=== PATIENT | female | born 2000 | race Caucasian/White ===

== ENCOUNTER 2022-03-06 10:12 | Inpatient (IN) ==
[2022-03-06 11:48] LABS: ABS Lymphocytes 1.6 10^3/ul (1.0-4.8); ABS Monocytes 0.5 10^3/ul (0-0.8); ABS Neutrophils 4.7 10^3/ul (1.5-7.7); Eosinophil % 0.4 %; Hematocrit 40 % (35-47); Lymphocyte % 23.2 %; Mean Corpuscular HGB Conc 35 g/dL (31-36); Mean Corpuscular Hemoglobin 32 pg (27-31); Mean Corpuscular Volume 90 fL (80-97); Mean Platelet Volume 8.6 fL (7.4-10.4); Platelet Count 224 10^3/uL (150-450); Red Blood Count 4.44 10^6 /uL (3.70-4.87); Red Cell Distribution Width 13 % (10-15); White Blood Count 6.9 10^3/uL (3.5-10.8)
[2022-03-06 11:54] LABS: Urine Appearance Clear; Urine Bilirubin Negative (Negative); Urine Blood 3+ (Large) (Negative); Urine Color Colorless; Urine Glucose Negative (Negative); Urine Ketones Negative (Negative); Urine Protein Negative (Negative); Urine Specific Gravity <=1.005 (1.005-1.030); Urine Urobilinogen 0.2 (Negative) (Negative); Urine pH 6.5 (5.0-9.0)
[2022-03-06 11:55] LABS: Urine Nitrite Negative (Negative)
[2022-03-06 12:05] LABS: Urine Benzodiazepine Screen None Detected (None Detect); Urine Cannabinoids Screen None Detected (None Detect); Urine Opiates Screen None Detected (None Detect)
[2022-03-06 12:06] LABS: ALT 10 U/L (7-52); AST 15 U/L (13-39); Acetaminophen < 15 mcg/mL; Albumin 4.6 g/dL (3.2-5.2); Albumin/Globulin Ratio 1.8 (1-3); Alcohol, S < 13 mg/dL (<13); Alkaline Phosphatase 67 U/L (35-149); Anion Gap 6 mmol/L (2-11); Blood Urea Nitrogen 11 mg/dL (6-24); CO2 Carbon Dioxide 27 mmol/L (22-32); Calcium 10.1 mg/dL (8.6-10.3); Chloride 105 mmol/L (101-111); Globulin 2.5 g/dL (2-4); Glucose 90 mg/dL (70-100); Potassium 4.2 mmol/L (3.5-5.0); Salicylate < 2.50 mg/dL (<30); Sodium 138 mmol/L (135-145); Total Protein 7.1 g/dL (6.4-8.9); eGFR CKD-EPI 99.3 (>60)
[2022-03-06 12:11] LABS: HCG Pregnancy < 0.60 mIU/mL
[2022-03-06 12:19] LABS: TSH Ultra Thyroid Stim Horm 0.98 mcIU/mL (0.34-5.60)
[2022-03-06 12:29] LABS: Urine Bacteria Absent (Absent); Urine Red Blood Cell Trace(0-2/hpf) (Absent); Urine Squamous Epithelial Cell Present (Absent); Urine White Blood Cell Trace(0-5/hpf) (Absent)
[2022-03-06] MEDS ORDERED: Al Hydrox/Mg Hydrox/Simet LIQ 30 ML UDC PO PRN (14:50)
[2022-03-06 15:14] LABS: Lithium < 0.10 mmol/L (0.6-1.2)
[2022-03-07 08:03] LABS: HDL Cholesterol 53.7 mg/dL
[2022-03-07] MEDS: Vitamin THERAPEUTIC TAB PO SCH (09:29)
[2022-03-08] MEDS: Vitamin THERAPEUTIC TAB PO SCH (08:56)
[2022-03-09] MEDS: Vitamin THERAPEUTIC TAB PO SCH (10:51)
[2022-03-10] MEDS: Vitamin THERAPEUTIC TAB PO SCH (07:09)
[2022-03-10 08:09] VITALS: BP 112/72
== END 2022-03-10 13:07 | disposition home or self-care (01) | DRG 755 ==
LOC: ED 10:12 → EDHOLD 14:50 → BSU 17:26
PROVIDERS: ADMIT Psychiatry & Neurology Psychiatry; ATTEND Psychiatry & Neurology Psychiatry

== ENCOUNTER 2022-03-16 12:04 | Inpatient (IN) ==
[2022-03-16 13:31] LABS: Urine Appearance Clear; Urine Bilirubin Negative (Negative); Urine Blood Negative (Negative); Urine Color Straw; Urine Glucose Negative (Negative); Urine Ketones Negative (Negative); Urine Nitrite Negative (Negative); Urine Protein Negative (Negative); Urine Specific Gravity <=1.005 (1.005-1.030); Urine Urobilinogen 0.2 (Negative) (Negative); Urine pH 5.5 (5.0-9.0)
[2022-03-16 13:40] LABS: Urine Benzodiazepine Screen None Detected (None Detect); Urine Cannabinoids Screen None Detected (None Detect); Urine Opiates Screen None Detected (None Detect)
[2022-03-16] MEDS ORDERED: LORazepam 2 mg VIAL 1 ml ONE (15:26)
[2022-03-16] MEDS ORDERED: Haloperidol 5 mg/ml SDV IV/IM 5 MG/ML AMP ONE (15:30)
[2022-03-16 17:47] LABS: HIV 4th Generation Nonreactive (Nonreactive)
[2022-03-17 08:33] LABS: HDL Cholesterol 60.8 mg/dL
[2022-03-18] MEDS ORDERED: Vitamin THERAPEUTIC TAB ONE (09:24)
[2022-03-22] MEDS ORDERED: OLANZapine IM (NF) 10 MG VIAL IM PRN (06:55)
[2022-03-22] MEDS ORDERED: OLANZapine 10 mg TAB*ODT PO ONE (06:55)
[2022-03-22] MEDS ORDERED: OLANZapine 10 mg TAB*ODT ONE (06:58)
[2022-03-22] MEDS ORDERED: OLANZapine IM (NF) 10 MG VIAL IM ONE (07:06)
[2022-03-23] MEDS ORDERED: OLANZapine 10 mg TAB*ODT ONE (13:09)
[2022-03-26 08:26] VITALS: BP 113/66
== END 2022-03-26 14:00 | disposition home or self-care (01) | DRG 753 ==
LOC: ED 12:04 → EDHOLD 14:42 → BSU 18:05
PROVIDERS: ADMIT Psychiatry & Neurology Addiction Psychiatry; ATTEND Psychiatry & Neurology Addiction Psychiatry

== ENCOUNTER 2023-05-23 22:02 | Inpatient (IN) ==
[2023-05-23] MEDS ORDERED: Midazolam 5 mg/5 ml VIAL 1 mg/ml 5 ml VIAL (5 mg) IV SLOW PU ONE (22:35)
[2023-05-23 23:09] LABS: Urine Appearance Clear; Urine Bilirubin Negative (Negative); Urine Blood Negative (Negative); Urine Color Yellow; Urine Glucose Negative (Negative); Urine Ketones Negative (Negative); Urine Nitrite Negative (Negative); Urine Protein Negative (Negative); Urine Specific Gravity 1.005 (1.002-1.030); Urine Urobilinogen Negative (Negative)
[2023-05-23 23:14] LABS: ABS Eosinophils 0.1 10^3/uL (0.0-0.5); ABS Lymphocytes 2.1 10^3/uL (1.0-4.8); ABS Monocytes 0.9 10^3/uL (0.0-0.9); ABS Neutrophils 8.3 10^3/uL (1.5-7.6); ABS Nucleated RBC 0.01 10^3/ul; Eosinophil % 0.5 %; Hematocrit 39.8 % (35-45); Hemoglobin 13.7 g/dL (11.5-14.3); Lymphocyte % 18.6 %; Mean Corpuscular Hemoglobin 31.5 pg (27-33); Mean Corpuscular Hgb Conc 34.3 g/dL (31-36); Mean Corpuscular Volume 91.8 fL (80-97); Mean Platelet Volume 8.2 fL (7.5-11.2); Nucleated Red Blood Cells % 0.1 %/100WBC (0.0-0.8); Platelet Count 271 10^3/uL (150-450); Red Blood Count 4.34 10^6/uL (3.63-4.92); Red Cell Distribution Width 13.2 % (12-17); White Blood Count 11.4 10^3/uL (3.8-11.8)
[2023-05-23] MEDS ORDERED: OLANZapine 10 mg TAB*ODT PO ONE (23:14)
[2023-05-23 23:25] LABS: Urine Benzodiazepine Screen None Detected (None Detect); Urine Cannabinoids Screen Presumptive Positive (None Detect); Urine Opiates Screen None Detected (None Detect)
[2023-05-23 23:41] LABS: ALT 16 U/L (7-52); AST 21 U/L (13-39); Acetaminophen < 15 mcg/mL; Albumin 4.6 g/dL (3.2-5.2); Albumin/Globulin Ratio 1.6 (1-3); Alcohol, S < 13 mg/dL (<13); Alkaline Phosphatase 86 U/L (35-149); Anion Gap 11 mmol/L (2-16); Blood Urea Nitrogen 9 mg/dL (6-24); CO2 Carbon Dioxide 23 mmol/L (22-32); Calcium 9.6 mg/dL (8.6-10.3); Chloride 105 mmol/L (101-111); Creatinine, Serum 0.85 mg/dL (0.51-0.95); Globulin 2.9 g/dL (2-4); Glucose 94 mg/dL (70-100); Lithium < 0.16 mmol/L (0.6-1.2); Potassium 3.8 mmol/L (3.5-5.0); Salicylate < 2.50 mg/dL (<30); Sodium 139 mmol/L (135-145); Total Bilirubin 0.4 mg/dL (0.2-1.0); Total Protein 7.5 g/dL (6.4-8.9); eGFR CKD-EPI 98.7 (>60)
[2023-05-23 23:43] LABS: HCG Pregnancy < 0.60 mIU/mL
[2023-05-23 23:51] LABS: TSH Ultra Thyroid Stim Horm 2.33 mcIU/mL (0.34-5.60)
[2023-05-24] MEDS ORDERED: Ondansetron ODT 4 mg TAB 4 MG TAB SL ONE (01:18)
[2023-05-24] MEDS ORDERED: Droperidol 5 MG/2 ML 2 ML VIAL IM ONE (01:31)
[2023-05-24] MEDS ORDERED: Droperidol 5 MG/2 ML 2 ML VIAL ONE (01:33)
[2023-05-24] MEDS ORDERED: Al Hydrox/Mg Hydrox/Simet LIQ 30 ML UDC PO PRN (12:00)
[2023-05-24] MEDS ORDERED: chlorproMAZINE TAB 50 MG Q6H PRN AGITATION PO (12:01)
[2023-05-24] MEDS: Ondansetron ODT 4 mg TAB 4 MG TAB PO PRN (17:08)
[2023-05-24] MEDS: Lithium Carbonate ER 450mg TAB PO SCH (20:31)
[2023-05-25] MEDS: Vitamin THERAPEUTIC TAB PO SCH (08:45)
[2023-05-25] MEDS: Lithium Carbonate ER 450mg TAB PO SCH ×2 (08:45→23:32)
[2023-05-25] MEDS: Nicotine PATCH 14 MG/24 HR PATCH TRANSDERM SCH (08:45)
[2023-05-25] MEDS: Nicotine GUM 4MG FRUIT FLAVOR PO PRN (08:49)
[2023-05-25] MEDS: Ondansetron ODT 4 mg TAB 4 MG TAB PO PRN ×2 (09:11→16:37)
[2023-05-25] MEDS ORDERED: Haloperidol 5 mg/ml SDV IV/IM 5 MG/ML AMP ONE (10:03)
[2023-05-25] MEDS ORDERED: LORazepam 2 mg VIAL 1 ml ONE (10:05)
[2023-05-25] MEDS ORDERED: Lorazepam PYXIS KEY PRN (10:35)
[2023-05-25] MEDS ORDERED: LORazepam 2 mg VIAL 1 ml IM ONE (10:35)
[2023-05-25] MEDS ORDERED: Haloperidol 5 mg/ml SDV IV/IM 5 MG/ML AMP IM ONE (10:36)
[2023-05-25] MEDS ORDERED: OLANZapine 10 mg TAB*ODT PO SCH (21:00)
[2023-05-26] MEDS: Nicotine PATCH 14 MG/24 HR PATCH TRANSDERM SCH (07:55)
[2023-05-26] MEDS: Lithium Carbonate ER 450mg TAB PO SCH ×2 (07:55→20:20)
[2023-05-26] MEDS: Vitamin THERAPEUTIC TAB PO SCH (07:55)
[2023-05-26] MEDS: Nicotine GUM 4MG FRUIT FLAVOR PO PRN (07:56)
[2023-05-26] MEDS: Ondansetron ODT 4 mg TAB 4 MG TAB PO PRN ×2 (08:06→16:56)
[2023-05-27] MEDS: Nicotine PATCH 14 MG/24 HR PATCH TRANSDERM SCH (08:25)
[2023-05-27] MEDS: Vitamin THERAPEUTIC TAB PO SCH (08:26)
[2023-05-27] MEDS: Lithium Carbonate ER 450mg TAB PO SCH ×2 (08:26→20:09)
[2023-05-27 16:13] LABS: HIV 4th Generation Nonreactive (Nonreactive)
[2023-05-27 16:29] LABS: Hepatitis C Antibody Negative (Negative)
[2023-05-28] MEDS: Ondansetron ODT 4 mg TAB 4 MG TAB PO PRN (04:51)
[2023-05-28] MEDS: Lithium Carbonate ER 450mg TAB PO SCH ×2 (08:10→20:23)
[2023-05-28] MEDS: Vitamin THERAPEUTIC TAB PO SCH (08:10)
[2023-05-28 09:26] LABS: Lithium 0.56 mmol/L (0.6-1.2)
[2023-05-28 09:28] LABS: HDL Cholesterol 51.2 mg/dL
[2023-05-28] MEDS: Nicotine PATCH 14 MG/24 HR PATCH TRANSDERM SCH (10:24)
[2023-05-28 13:41] LABS: HCG Pregnancy 9.05 mIU/mL
[2023-05-29] MEDS: Vitamin THERAPEUTIC TAB PO SCH (08:13)
[2023-05-29] MEDS: Lithium Carbonate ER 450mg TAB PO SCH ×2 (08:13→20:20)
[2023-05-29] MEDS: Nicotine PATCH 14 MG/24 HR PATCH TRANSDERM SCH (08:13)
[2023-05-29] MEDS: Ondansetron ODT 4 mg TAB 4 MG TAB PO PRN ×2 (10:33→17:19)
[2023-05-30] MEDS ORDERED: Nicotine PATCH 7 MG/24 HR PATCH ONE (08:09)
[2023-05-30] MEDS: Lithium Carbonate ER 450mg TAB PO SCH ×2 (08:10→20:04)
[2023-05-30] MEDS: Vitamin THERAPEUTIC TAB PO SCH (08:10)
[2023-05-30] MEDS: Nicotine PATCH 7 MG/24 HR PATCH TRANSDERM SCH (10:49)
[2023-05-30] MEDS: Nicotine PATCH 14 MG/24 HR PATCH TRANSDERM SCH (10:51)
[2023-05-30] MEDS: Ondansetron ODT 4 mg TAB 4 MG TAB PO PRN ×2 (12:07→20:54)
[2023-05-31] MEDS: Nicotine PATCH 7 MG/24 HR PATCH TRANSDERM SCH (08:22)
[2023-05-31] MEDS: Lithium Carbonate ER 450mg TAB PO SCH ×2 (08:23→20:22)
[2023-05-31] MEDS: Vitamin THERAPEUTIC TAB PO SCH (08:23)
[2023-06-01] MEDS: Lithium Carbonate ER 450mg TAB PO SCH ×2 (09:02→20:14)
[2023-06-01] MEDS: Vitamin THERAPEUTIC TAB PO SCH (09:02)
[2023-06-01] MEDS: Nicotine PATCH 7 MG/24 HR PATCH TRANSDERM SCH (09:02)
[2023-06-01] MEDS ORDERED: ARIPiprazole LAUROXIL INITIO 675 MG/2.4 ML SYRINGE IM ONE (14:09)
[2023-06-01] MEDS ORDERED: ARIPiprazole LAUROXIL 441 MG/1.6 ML SYRINGE IM ONE (14:09)
[2023-06-02] MEDS: Lithium Carbonate ER 450mg TAB PO SCH (08:17)
[2023-06-02] MEDS: Vitamin THERAPEUTIC TAB PO SCH (08:17)
[2023-06-02] MEDS: Nicotine PATCH 7 MG/24 HR PATCH TRANSDERM SCH (08:18)
[2023-06-02] MEDS: Nicotine GUM 4MG FRUIT FLAVOR PO PRN (12:56)
[2023-06-03] MEDS: Ondansetron ODT 4 mg TAB 4 MG TAB PO PRN (00:48)
[2023-06-03] MEDS: Vitamin THERAPEUTIC TAB PO SCH (08:35)
[2023-06-03] MEDS: Nicotine PATCH 7 MG/24 HR PATCH TRANSDERM SCH (08:38)
[2023-06-04 07:45] VITALS: BP 116/87
[2023-06-04] MEDS: Vitamin THERAPEUTIC TAB PO SCH (08:18)
== END 2023-06-04 13:56 | DRG 885 ==
LOC: ED 22:02 → BSU 05-24 10:22 → EDHOLD 05-24 10:22 → BSU 05-24 11:26
PROVIDERS: ADMIT Psychiatry & Neurology Addiction Psychiatry; ATTEND Psychiatry & Neurology Psychiatry

== ENCOUNTER 2024-06-13 04:23 | Inpatient (IN) ==
[2024-06-13] MEDS ORDERED: LORazepam 2 mg VIAL 1 ml ONE ×2 (04:24→04:37)
[2024-06-13] MEDS: Haloperidol 5 mg/ml SDV IV/IM 5 MG/ML AMP IM ONE ×2 (04:37→17:52)
[2024-06-13] MEDS: LORazepam 2 mg VIAL 1 ml IM ONE ×2 (04:37→17:52)
[2024-06-13] MEDS ORDERED: Haloperidol 5 mg/ml SDV IV/IM 5 MG/ML AMP ONE (04:37)
[2024-06-13 06:00] LABS: ABS Basophils 0.1 10^3/uL (0.0-0.1); ABS Eosinophils 0.3 10^3/uL (0.0-0.5); ABS Lymphocytes 2.1 10^3/uL (1.0-4.8); ABS Neutrophils 7.5 10^3/uL (1.5-7.6); ABS Nucleated RBC 0.01 10^3/ul; Eosinophil % 2.6 %; Hematocrit 37.5 % (35-45); Mean Corpuscular Hemoglobin 31.8 pg (27-33); Mean Corpuscular Hgb Conc 34.7 g/dL (31-36); Mean Corpuscular Volume 91.5 fL (80-97); Mean Platelet Volume 7.9 fL (7.5-11.2); Nucleated Red Blood Cells % 0.1 %/100WBC (0.0-0.8); Platelet Count 244 10^3/uL (150-450); Red Cell Distribution Width 12.7 % (12-17)
[2024-06-13 06:50] LABS: ALT 15 U/L (7-52); AST 17 U/L (13-39); Acetaminophen < 15 mcg/mL; Albumin 4.1 g/dL (3.2-5.2); Albumin/Globulin Ratio 2.1 (1-3); Alcohol, S < 13 mg/dL (<13); Alkaline Phosphatase 77 U/L (35-149); Anion Gap 4 mmol/L (2-16); Blood Urea Nitrogen 17 mg/dL (6-24); CO2 Carbon Dioxide 26 mmol/L (22-32); Calcium 10.3 mg/dL (8.6-10.3); Chloride 108 mmol/L (101-111); Creatinine, Serum 0.93 mg/dL (0.51-0.95); Glucose 89 mg/dL (70-100); Potassium 3.7 mmol/L (3.5-5.0); Salicylate < 2.50 mg/dL (<30); Sodium 138 mmol/L (135-145); Total Bilirubin 0.3 mg/dL (0.2-1.0); Total Protein 6.1 g/dL (6.4-8.9)
[2024-06-13 06:58] LABS: HCG Pregnancy < 0.60 mIU/mL
[2024-06-13 07:06] LABS: TSH Ultra Thyroid Stim Horm 5.91 mcIU/mL (0.34-5.60)
[2024-06-13 12:28] LABS: Urine Appearance Turbid; Urine Bilirubin Negative (Negative); Urine Blood Negative (Negative); Urine Color Yellow; Urine Glucose Negative (Negative); Urine Ketones Negative (Negative); Urine Nitrite Negative (Negative); Urine Protein Negative (Negative); Urine Specific Gravity 1.023 (1.002-1.030); Urine Urobilinogen Negative (Negative)
[2024-06-13 12:44] LABS: Urine Benzodiazepine Screen None Detected (None Detect); Urine Cannabinoids Screen Presumptive Positive (None Detect); Urine Opiates Screen None Detected (None Detect)
[2024-06-13] MEDS ORDERED: Al Hydrox/Mg Hydrox/Simet LIQ 30 ML UDC PO PRN (15:49)
[2024-06-13] MEDS ORDERED: Lorazepam PYXIS KEY PRN (16:12)
[2024-06-14] MEDS: Vitamin THERAPEUTIC TAB PO SCH (08:25)
[2024-06-14] MEDS: Nicotine GUM 2MG FRUIT FLAVOR PO PRN (13:17)
[2024-06-14] MEDS: Nicotine GUM 4MG FRUIT FLAVOR PO PRN (18:54)
[2024-06-14] MEDS: Nicotine PATCH 21 MG/24 HR PATCH TRANSDERM SCH (20:34)
[2024-06-17 08:41] VITALS: BP 104/73
== END 2024-06-17 17:30 | disposition home or self-care (01) | DRG 885 ==
LOC: ED 04:23 → EDHOLD 15:37 → BSU 16:09
PROVIDERS: ADMIT Psychiatry & Neurology Psychiatry; ATTEND Psychiatry & Neurology Psychiatry